=== PATIENT | male | born 1990 | race Two or more races ===

== ENCOUNTER 2024-04-25 11:33 | Emergency (ER) | payer OTHER ==
--- NOTE | 2024-04-25 13:03 | ED Physician Documentation ---
PD HPI HEENT - Stated complaint Stated Complaint: SINUS PRESSURE,SORE MUSCLES - Chief complaint Chief Complaint: Heent - History obtained from History obtained from: Patient - History of Present Illness Timing - onset: How many weeks ago (2-3) Timing - duration: Weeks (2-3) Timing - details: Gradual onset, Still present Location: Sinuses (has had sinus pressure and clerar congestion for 2-3 weeks, with now development of pressure left maxillary area, discolored drainage, sore throat. Fever and chills without otherwise URI symptoms (not cough nor increased sore throat).) Recently seen: Not recently seen Review of Systems Constitutional: reports: Fever (the past couple of days.), Chills Nose: reports: Congestion, Sinus pressure / pain. denies: Rhinorrhea / runny nose Throat: reports: Sore throat (mild) Respiratory: denies: Dyspnea GI: denies: Nausea, Vomiting PD PAST MEDICAL HISTORY - Past Medical History Past Medical History: No - Past Surgical History Past Surgical History: Yes Ortho: Other HEENT: Other - Present Medications Home Medications: Ambulatory Orders Medication Instructions Recorded Confirmed Amox/Clav 875/125 [Augmentin] 1 each PO Q12H #14 tablet 04/25/24 Cetirizine [ZyrTEC] 10 mg PO DAILY #15 tablet 04/25/24 Fluticasone Propionate 2 spr NS DAILY 30 Days #1 ml 04/25/24 dexAMETHasone [Decadron] 4 mg PO DAILY #5 tablet 04/25/24 - Allergies Allergies/Adverse Reactions: Allergies Allergy/AdvReac Type Severity Reaction Status Date / Time No Known Drug Allergies Allergy Verified 04/25/24 11:46 - Social History Does the pt smoke?: No Smoking Status: Never smoker Does the pt drink ETOH?: Yes Does the pt have substance abuse?: No - Immunizations Immunizations are current?: Yes PD ED PE NORMAL - Vitals Vital signs reviewed: Yes - General General: Alert and oriented X 3, Well developed/nourished - HEENT HEENT: Ears normal, Pharynx benign - Neck Neck: Supple, no meningeal sign, No adenopathy - Cardiac Cardiac: RRR, No murmur - Respiratory Respiratory: Clear bilaterally Results - Vitals Vitals: Vital Signs - 24 hr 04/25/24 04/25/24 11:42 13:30 Temperature 36.4 C L 36.5 C Heart Rate 82 80 Respiratory 16 16 Rate Blood Pressure 133/68 H 130/68 O2 Saturation 99 100 Oxygen O2 Source Room air PD Medical Decision Making - ED course Complexity details: considered differential (He has had 2 weeks of nasal congestion and sinus pressure initially either a mild head cold or allergies. He was using [id number] antihistamines and also Sudafed and some saline nose spray. Continues with symptoms and now several days of bodyaches fevers and increased pressure. ), d/w patient ED course: He has minimal cough and no sore throat. He has some purulent drainage in the mornings. It sounds most likely to be some sinus congestion and now with sinusitis and does not have general viral type syndrome. Therefore the chills and bodyaches that would attribute to developing sinusitis. Departure - Departure Disposition: 01 Home, Self Care Clinical Impression: Acute sinusitis Qualifiers: Sinusitis location: unspecified location Recurrence: not specified as recurrent Qualified Code(s): J01.90 - Acute sinusitis, unspecified Condition: Stable Record reviewed to determine appropriate education?: Yes Instructions: ED Sinusitis Abx Tx Follow-Up: FABRICIO CLANCY DO [Primary Care Provider] - Prescriptions: Amox/Clav 875/125 [Augmentin] 1 each PO Q12H #14 tablet dexAMETHasone [Decadron] 4 mg PO DAILY #5 tablet Fluticasone Propionate 2 spr NS DAILY 30 Days #1 ml Cetirizine [ZyrTEC] 10 mg PO DAILY #15 tablet Comments: It does sound like your nasal congestion which could have been head cold or allergies or such as you are thinking has now bruised into a sinus infection. This would account for your more general body symptoms but yet not really having flu type general symptoms such as a major sore throat and cough etc. It would sound likely here have developed into a bacterial sinus infection. Will treat this with antibiotics Augmentin twice daily and a steroid anti- inflammatory Decadron daily for 5 more days. In addition we will try to unclog the sinus openings which are in the back of the nose passage with fluticasone spray twice daily and saline spray as you have been doing. Continue with an antihistamine such as cetirizine once or twice daily for the next several days to week. I would anticipate improvement in your symptoms over the next few days and resolution over 4 to 5 days. [facility] [place] [facility] [place] [facility] [place] Your next doses will want to be tomorrow morning. Forms: PCP List Discharge Date/Time: 04/25/24 13:39
[2024-04-25] MEDS: dexAMETHasone 4 MG TABLET PO STA (13:23)
[2024-04-25] MEDS: CETIRIZINE 10 MG TABLET PO STA (13:23)
[2024-04-25] MEDS: AMOX/CLAV 875 MG/125 MG TABLET PO STA (13:23)
[2024-04-25 13:55] VITALS: BP 130/68; O2SAT 100
== END 2024-04-25 13:39 | disposition home or self-care (01) ==
LOC: ED 11:33
DX: J01.90 Acute sinusitis, unspecified (principal)
CPT/HCPCS: 99283; A9270; J8540